=== PATIENT | male | born 1980 | race Caucasian/White ===

== ENCOUNTER 2021-12-09 07:37 | Outpatient (CLI) | payer BC | END 2021-12-09 07:38 | disposition home or self-care (01) | LOC: ULT 07:37 | PROVIDERS: ATTEND Nurse Practitioner Family | DX: R79.89 Other specified abnormal findings of blood chemistry (principal); K76.0 Fatty (change of) liver, not elsewhere classified | CPT/HCPCS: 76705 ==

== ENCOUNTER 2023-06-04 08:41 | Outpatient (CLI) | payer BC | END 2023-06-04 08:42 | disposition home or self-care (01) | LOC: RAD 08:41 | PROVIDERS: ATTEND Internal Medicine | DX: R06.00 Dyspnea, unspecified (principal) | CPT/HCPCS: 71046 ==

== ENCOUNTER 2024-05-10 12:13 | Outpatient (CLI) | payer BC, OTHER | END 2024-05-10 12:14 | disposition home or self-care (01) | LOC: RAD 12:13 | PROVIDERS: ATTEND Otolaryngology Plastic Surgery within the Head & Neck | DX: R05.3 Chronic cough (principal) | CPT/HCPCS: 71046 ==